=== PATIENT | male | born 1995 | race Two or more races ===

== ENCOUNTER 2018-07-13 06:06 | Emergency (ER) | payer SELFPAY ==
[2018-07-13] MEDS ORDERED: Ibuprofen TAB* 800 MG PO ONE (06:36)
--- NOTE | 2018-07-13 06:37 | ED ---
Lower Extremity - HPI Summary HPI Summary: Patient is a 23-year-old male who presents emergency department for swelling and pain to his right knee since a few days. Patient denies any injuries or falls or provocative factors. He is a student [employer]. Patient states prior to right knee swelling and had some swelling and pain in his left knee last week that has resolved. Past medical history of vitiligo only. Patient denies fever, chills, rash, recent illness, cough, sore throat, sinus congestion, abdominal pain, vomiting, diarrhea, urinary symptoms, penile discharge. Patient denies history of Lyme disease or recent tick bites. He is unsure of familiar history of rheumatoid arthritis or rheumatoid logical disease. Symptoms are mild in severity. Walking and moving really makes symptoms worse. Rest makes symptoms better. Patient has not taken any [id number] analgesics. - History of Current Complaint Chief Complaint: EDExtremityLower Stated Complaint: "R KNEE INFLAMED FOR A COUPLE DAYS" PER PT Time Seen by Provider: 07/13/18 06:22 Hx Obtained From: Patient Pain Intensity: 10 - Allergies/Home Medications Allergies/Adverse Reactions: Allergies Allergy/AdvReac Type Severity Reaction Status Date / Time No Known Allergies Allergy Verified 07/13/18 06:10 PMH/Surg Hx/FS Hx/Imm Hx Previously Healthy: Yes - Immunization History Date of Tetanus Vaccine: utd Date of Influenza Vaccine: none Infectious Disease History: No Infectious Disease History: Denies: Traveled Outside the [place] in Last 30 Days - Social History Occupation: Student Lives: Dormitory/Roommates Alcohol Use: None Substance Use Type: Reports: None Smoking Status (MU): Never Smoked Tobacco Review of Systems Constitutional: Negative Negative: Fever, Chills Eyes: Negative ENT: Negative Negative: Sore Throat, Ear Ache, Nasal Discharge Cardiovascular: Negative Respiratory: Negative Negative: Cough Gastrointestinal: Negative Genitourinary: Negative Positive: Other - right knee pain and swelling Skin: Negative Negative: Rash Neurological: Negative Negative: Headache All Other Systems Reviewed And Are Negative: Yes Physical Exam Triage Information Reviewed: Yes Vital Signs On Initial Exam: Initial Vitals Temp Pulse Resp BP Pulse Ox 99.0 F 108 16 135/92 99 07/13/18 06:07 07/13/18 06:07 07/13/18 06:07 07/13/18 06:07 07/13/18 06:07 Vital Signs Reviewed: Yes Appearance: Positive: Well-Appearing - Pt. lying in bed in NAD. Pleasant. Skin: Positive: Warm, Dry Head/Face: Positive: Normal Head/Face Inspection Eyes: Positive: Normal, EOMI Neck: Positive: Supple, Nontender. Negative: Nuchal Rigidity Respiratory/Lung Sounds: Positive: Clear to Auscultation, Breath Sounds Present Cardiovascular: Positive: Normal, RRR Musculoskeletal: Positive: Other - Full ROM left knee without effusion. Mild effusion to right knee with diffuse tenderness to palpation. No overlying erythema. Mild increase warmth. Full ROM with pain with flexion. No overlying wounds. Neurological: Positive: Normal, CN Intact II-III Psychiatric: Positive: Affect/Mood Appropriate Diagnostics - Vital Signs Vital Signs Temp Pulse Resp BP Pulse Ox 07/13/18 06:07 99.0 F 108 16 135/92 99 - Laboratory Result Diagrams: 07/13/18 06:46 07/13/18 06:46 Lab Statement: Any lab studies that have been ordered have been reviewed, and results considered in the medical decision making process. Lower Extremity Course/Dx - Course Course Of Treatment: Pt. presenting for atraumatic bilateral knee edema and pain. L knee has resolved. Afebrile. NO signs of septic joint on exam. Pt. given motrin. Labs and xray obtained. Xray negative for acute findings. Labs show mild elevation in WBC and CRP. Pending lyme titer. Suspect an underlying autoimmune/rheumatological etiology. Results discussed with pt. Motrin helped with pain and ROM. Nnamdi placed. Advised pt. to fu with [facility] for further lab testing and possible aspiration. Motrin rx. Pt. understands and agrees with plan. - Diagnoses Differential Diagnosis/HQI/PQRI: Positive: Arthritis, Cellulitis, Fracture ( Closed), Sprain, Strain Provider Diagnoses: Knee effusion Discharge - Sign-Out/Discharge Documenting (check all that apply): Patient Departure Patient Received Moderate/Deep Sedation with Procedure: No - Discharge Plan Condition: Improved Disposition: HOME Prescriptions: Ibuprofen TAB* [Motrin TAB* 800 MG] 800 mg PO Q6H #20 tab Patient Education Materials: Swollen Knee Joint (ED) Referrals: [facility] [Outside] Theresa Swann MD [Medical Doctor] - Additional Instructions: Call [facility] and the orthopedic clinic tomorrow for a close follow up appointment for further evaluation--you may need further blood test and possible knee aspiration Ice and elevate intermittently Ibuprofen for pain as directed Return to ER for increased pain, fever, difficulty bending/straightening knee, or if concerned - Billing Disposition and Condition Condition: IMPROVED Disposition: Home
[2018-07-13 06:57] LABS: ABS Basophils 0 10^3/ul (0-0.2); ABS Eosinophils 0 10^3/ul (0-0.6); ABS Lymphocytes 0.7 10^3/ul (1.0-4.8); ABS Monocytes 0.7 10^3/ul (0-0.8); ABS Neutrophils 11.1 10^3/ul (1.5-7.7); ABS Nucleated RBC 0 10^3/ul; Eosinophil % 0.3 %; Hematocrit 42 % (36-46); Hemoglobin 14.2 g/dL (14.0-18.0); Lymphocyte % 5.5 %; Mean Corpuscular HGB Conc 34 g/dL (31-36); Mean Corpuscular Hemoglobin 28 pg (27-31); Mean Corpuscular Volume 83 fL (80-94); Mean Platelet Volume 7.1 fL (7.4-10.4); Nucleated Red Blood Cells % 0.1; Platelet Count 275 10^3/uL (150-450); Red Cell Distribution Width 14 % (10.5-15); White Blood Count 12.5 10^3/uL (3.5-10.8)
[2018-07-13 07:11] LABS: Albumin 4.4 g/dL (3.2-5.2); Albumin/Globulin Ratio 1.4 (1-3); BUN/Creatinine Ratio 10.9 (8-20); C Reactive Protein 36.55 mg/L (<8.01); Calcium 9.5 mg/dL (8.6-10.3); EGFR African American 125.7 (>60); EGFR Non-African American 103.9 (>60); Globulin 3.1 g/dL (2-4); Potassium 3.7 mmol/L (3.5-5.0); Total Bilirubin 0.3 mg/dL (0.2-1.0); Total Protein 7.5 g/dL (6.4-8.9)
[2018-07-13 08:27] VITALS: BP 122/88
[2018-07-16 16:54] LABS: B garinii/B afzelii PCR Negative (Negative); B mayonii PCR Negative (Negative)
== END 2018-07-13 08:23 | disposition home or self-care (01) ==
LOC: ED 06:06
DX: M25.461 Effusion, right knee (principal)
CPT/HCPCS: 36415; 80053; 85025; 86140; 87476; 87798; 99283; A9270-GY